=== PATIENT | male | born 1965 | race Caucasian/White ===

== ENCOUNTER 2017-06-05 14:41 | Emergency (ER) | payer SELFPAY ==
--- NOTE | 2017-06-05 15:01 | ERNOTE ---
Lower Extremity HPI - Narrative Date of Service: 06/05/17 - General Lower Extremities Pain: leg: left Time Seen by Provider: 06/05/17 14:50 Source: patient, RN notes reviewed Exam Limitations: no limitations - Immun/Allergies/Home Medications Immunizations: IMMUNIZATION HX Immunizations Up to Date Yes History of Influenza Vaccine No Hx Pneumococcal Vaccination No Allergies/Adverse Reactions: Allergies Allergy/AdvReac Type Severity Reaction Status Date / Time No Known Allergies Allergy Verified 06/05/17 14:46 Home Medications: HOME MEDICATIONS Cephalexin 500 mg PO QID #40 tab 06/05/17 [Last Taken Unknown] Metoprolol Succinate [Toprol Xl] 200 mg PO BID 06/05/17 [Last Taken Unknown] - History of Present Illness Narrative: Marc is a 52 year old male who presents to the ED by private vehicle for pain, redness and swelling in his left calf that started last night. The redness had increased this morning when he got up. He has not taken anything for pain. He denies any fever or malaise. Date (Duration): 06/04/17 Method of Injury: Reports: no apparent injury Prior Treament: Denies: recently seen, similar symptoms before Review of Systems - Review of Systems Constitutional: Absent: recent illness, fever, chills, malaise EYE: Present: no symptoms reported ENT: Present: no symptoms reported Respiratory: Absent: shortness of breath, cough Cardiology: Absent: chest pain, palpitations Gastrointestinal/Abdominal: Absent: nausea, vomiting Genitourinary: Present: no symptoms reported Musculoskeletal: Present: muscle pain. Absent: joint pain, joint swelling Skin: Present: change in color. Absent: rash, lesions Neurological: Absent: weakness, numbness, tingling Endocrine: Present: no symptoms reported Hematologic/Lymphatic: Present: no symptoms reported Psych: Present: no symptoms reported - Patient's Past Medical History Patient History - Medical: No pertinent hx Patient History - Cardiac/Respiratory: Hypertension, Hyperlipidemia Patient History - Cancer: No Hx of Cancer Patient History - Surgical Procedures: No surgical history Patient History - Other: None - Social History Living Situations: home Psych History: No pertinent hx Smoking Status: Current every day smoker Cigarettes Packs Per Day: 1 - Immunizations Immunizations Up to Date: Yes Hx Pneumococcal Vaccination: No History of Influenza Vaccine: No Physical Exam - Physical Exam General Appearance: Present: wd/wn, alert, no apparent distress, obese Neck: Present: normal inspection, nontender, supple Respiratory: Present: no respiratory distress, normal breath sounds, no accessory muscle use, lungs clear Cardiovascular/Chest: Present: regular rate, rhythm, no murmur, normal peripheral pulses Extremity Exam: Present: normal range of motion, calf tenderness - left, extremity edema - mild - left lower leg. Absent: joint redness, joint swelling Neurological Exam: Present: alert, oriented, normal mood/affect, no motor/ sensory deficits Skin Exam: Present: warm/dry, skin rash - a few pustules present on left lower leg, mild erythema left calf - moderate erythema near ankle ED Progress - Results and Orders Patient's Lab Results:: I have reviewed the patient's lab results. - Vital Signs Patient's Vital Signs:: I have reviewed the patient's vital signs. Vital Signs: Vital Signs 06/05/17 14:43 Temperature 36.6 C Pulse Rate 88 Respiratory 16 Rate Blood Pressure 157/98 O2 Sat by Pulse 96 Oximetry - Progress/Reassessment Chief Complaint: Lower Extremity Pain/ Injury Progress:: Unchanged Plan - Plan Plan: Ddimer normal, WBC slightly elevated. Will treat for cellulitis. Rocephin IM given prior to D/C. Departure Clinical Impression: Cellulitis of lower leg - Departure Disposition: Home Follow Up Needed Condition: Stable Instructions: Cellulitis, Adult, [id number] Additional Instructions: Elevate your leg whenever possible Tylenol and /or ibuprofen for pain if needed Return for high fevers, vomiting, worsening pain/redness or other concerns Referrals: Radha Bravo MD [Primary Care Provider] - Prescriptions: Cephalexin 500 mg PO QID #40 tab
[2017-06-05 15:09] LABS: Hematocrit 43.4 % (42.0-52.0); Mean Cell Volume 93.7 fl (78-100); Mean Corpuscular Hemoglobin 32.4 pg (27-31); Mean Corpuscular Hgb Conc 34.6 g/dl (32-36); Mean Platelet Volume 10.9 fl (6.0-9.5); Neutrophil # 7.6 K/mm3 (1.3-6.0); Neutrophil % 67.8 % (42-75.0); Platelet Count 274 K/mm3 (150-450); Red Blood Count 4.63 M/mm3 (4.7-6.0); Red Cell Distribution Width 13.1 % (11.5-14.0); White Blood Count 11.2 K/mm3 (4.0-10.5)
[2017-06-05 15:21] LABS: Albumin * 3.6 gm/dl (3.4-5.0); Anion Gap 15.1 mmol/L (6.8-13.8); BUN/Creatinine Ratio 17.3 (9.0-21.6); Bilirubin, Total 0.3 mg/dL (0.0-1.1); Ca. Corrected For Albumin 8.9 mg/dL (8.4-10.2); Calcium * 8.9 mg/dL (7.9-10.9); Carbon Dioxide 26.5 mmol/L (24-32.6); Potassium 3.6 mmol/L (3.4-4.6); Total Protein 8.1 gm/dL (6.2-8.2)
[2017-06-05 16:10] VITALS: BP 169/91
== END 2017-06-05 16:07 | disposition home or self-care (01) ==
LOC: ER 14:41
DX: L03.116 Cellulitis of left lower limb (principal); I10 Essential (primary) hypertension; F17.210 Nicotine dependence, cigarettes, uncomplicated